=== PATIENT | male | born 1995 | race Two or more races ===

== ENCOUNTER 2022-12-16 14:56 | Emergency (ER) | payer OTHER ==
[~2022-12-16] VITALS: Ht 180.3 cm; Wt 83.9 kg
[2022-12-16] MEDS ORDERED: ACID CONTROLLER10 MG PO (15:16)
== END 2022-12-16 19:03 | disposition home or self-care (01) ==
LOC: ER 14:56
DX: S19.80XA Other specified injuries of unspecified part of neck, initial encounter (principal); V49.9XXA Car occupant (driver) (passenger) injured in unspecified traffic accident, initial encounter; Y93.9 Activity, unspecified; Y92.413 State road as the place of occurrence of the external cause; Y99.9 Unspecified external cause status; M54.2 Cervicalgia; M54.9 Dorsalgia, unspecified